=== PATIENT | male | born 1955 | race Caucasian/White ===

== ENCOUNTER 2019-10-21 19:24 | Emergency (ER) | payer BC ==
[2019-10-21] MEDS ORDERED: Bacitracin 1 PK ONE (20:11)
[2019-10-21] MEDS ORDERED: Amoxicillin/Potassium Clav 875 MG TAB ONE (20:11)
[2019-10-21] MEDS ORDERED: Adacel (T-DAP) 0.5 ML SYRINGE ONE (20:11)
== END 2019-10-21 20:25 | disposition home or self-care (01) ==
LOC: BURERS 19:24
DX: S81.851A Open bite, right lower leg, initial encounter (principal); Z23 Encounter for immunization; W54.0XXA Bitten by dog, initial encounter
CPT/HCPCS: 90471; 90715